=== PATIENT | male | born 1965 | race Caucasian/White ===

== ENCOUNTER 2018-05-22 14:34 | Observation (INO) | payer OTHER ==
[~2018-05-22] VITALS: Ht 172.7 cm; Wt 79.4 kg
--- NOTE | 2018-05-22 17:14 | NUR ---
PT TO DAY SURGERY VIA GURNEY FROM THE ER FOR EGD W/FOREIGN BODY REMOVAL. Patient States Post-Procedure ride home has been arranged.
--- NOTE | 2018-05-22 17:20 | NUR ---
05/22/18 1720 Qing Trujillo TO [facility]. AGREES WITH PLANNED PROCEDURE. History, Chart, Medications and Allergies reviewed before start of procedure. PATIENT CONFIRMS NPO STATUS AND AGREES WITH SCHEDULED PROCEDURE. O2 VIA N/C INTACT THROUGHOUT SEDATION/PROCEDURE. 3-LEAD EKG REVIEWED WITH PHYSICIAN PRIOR TO START OF PROCEDURE. Bite Block Placed. PATIENT DETERMINED TO BE ASA APPROPRIATE FOR PROPOFOL SEDATION PRIOR TO START OF PROCEDURE BY DR. MARIE.
--- NOTE | 2018-05-22 18:11 | NUR ---
PT TO STEP. DENIES PAIN AT PRESENT. WATER GIVEN TO PT.
--- NOTE | 2018-05-22 18:40 | NUR ---
WRITTEN AND VERBAL D/C INSTUCTIONS GIVEN TO PT WITH STATED UNDERSTANDING.
== END 2018-05-22 18:40 | disposition home or self-care (01) ==
LOC: ER 14:34 → SURS 14:35
PROVIDERS: ADMIT Student in an Organized Health Care Education/Training Program
PROC: 0DB78ZX Excision of Stomach, Pylorus, Via Natural or Artificial Opening Endoscopic, Diagnostic (ICD-10-PCS; principal; 2018-05-22 17:00)
PROC: 0DB68ZX Excision of Stomach, Via Natural or Artificial Opening Endoscopic, Diagnostic (ICD-10-PCS; principal; 2018-05-22 17:00)
PROC: 0DC58ZZ Extirpation of Matter from Esophagus, Via Natural or Artificial Opening Endoscopic (ICD-10-PCS; principal; 2018-05-22 17:00)
PROC: 0D758ZZ Dilation of Esophagus, Via Natural or Artificial Opening Endoscopic (ICD-10-PCS; principal; 2018-05-22 17:00)
DX: T18.128A Food in esophagus causing other injury, initial encounter (principal); K22.2 Esophageal obstruction; K29.70 Gastritis, unspecified, without bleeding; K44.9 Diaphragmatic hernia without obstruction or gangrene; K29.80 Duodenitis without bleeding; K20.9 Esophagitis, unspecified; K25.9 Gastric ulcer, unspecified as acute or chronic, without hemorrhage or perforation
CPT/HCPCS: 71046; 88305; 88342; 96374; 99284-25; C1726; J1610; J7120